=== PATIENT | male | born 1980 | race Caucasian/White ===

== ENCOUNTER 2021-03-28 12:59 | Emergency (ER) | payer OTHER ==
[~2021-03-28] VITALS: Ht 177.8 cm; Wt 83.1 kg
--- NOTE | 2021-03-28 14:29 | REP ---
INDICATION: left testicle pain. COMPARISON: None. TECHNIQUE: Ultrasound examination of the scrotum was performed in multiple projections and supplemented by color Doppler imaging. FINDINGS: The right testis measures 3.9 x 2.7 x 1.9 cm. The right epididymal head measures 8 mm in thickness and contains a cyst measuring 3 mm in diameter. The left testis measures 4.1 x 2.8 x 1.9 cm. The left epididymal head measures 6 mm in thickness and contains a 3 mm in diameter cyst. There is a left extratesticular scrotal calcification measuring 2 mm in diameter. There is a moderate left hydrocele. There are no varicoceles. IMPRESSION: 1. The testes are normal. 2. There are bilateral epididymal head cysts. 3. There is a left hydrocele. 4. There is a benign scrotal fabiana on the left. <Electronically signed by Jorge Goff > 03/28/21 [id number]
[2021-03-28 15:03] LABS: GC DNA AMPLIFICATION NEGATIVE (NEGATIVE)
--- NOTE | 2021-03-28 16:04 | REP ---
INDICATION: urinary freq/hematuria ? kidney stone. COMPARISON: None. TECHNIQUE: Imaging protocol: Computed tomography of the abdomen and pelvis without contrast. 2D sagittal and coronal reconstructions were performed. Radiation optimization: All CT scans at this facility use at least one of these dose optimization techniques: automated exposure control; mA and/or kV adjustment per patient size (includes targeted exams where dose is matched to clinical indication); or iterative reconstruction. FINDINGS: Heart and lung bases: The lung bases are clear. There are no pleural effusions. The heart size is normal. There is no pericardial effusion. Liver: Normal unenhanced appearance. Gallbladder: Normal. Spleen: Normal unenhanced appearance. Pancreas: Normal unenhanced appearance. Adrenal glands: Normal unenhanced appearance. Kidneys/bladder: The kidneys have a normal unenhanced appearance. The urinary bladder is partially evacuated. Pelvic structures: The prostate gland is normal in size. The seminal vesicles have a normal unenhanced appearance. There is no free fluid the pelvis. There is no pelvic or inguinal lymphadenopathy. There is an oval, peripherally hypodense and centrally radiodense mass, in the subcutaneous fat, at the base of the penis, on the right, measuring approximately 20 x 15 x 10 mm. There is significant subcutaneous fat in the visualized penile tissue. GI tract: There is a normal appendix is demonstrated. The gastrointestinal tract is otherwise unremarkable. Abdominal wall and mesentery: There is a 5 mm in diameter umbilical hernia containing normal fat. There are numerous "shotty" reactive retroperitoneal lymph nodes. There is no mesenteric lymphadenopathy. Abdominal aorta and vascular structures: The abdominal aorta has a normal unenhanced appearance. Bony structures: There is an L5-S1 disc protrusion. The SI joints and hips are normal. IMPRESSION: 1. Significant subcutaneous fat in the penis of uncertain significance. 2. There is a subcutaneous mass in the right side of the penis of uncertain etiology. 3. numerous "shotty" reactive retroperitoneal lymph nodes. 4. Degenerative disc disease, L5-S1. 5. There is no evidence of nephrolithiasis, ureterolithiasis or hydronephrosis. <Electronically signed by Jorge Goff > 03/28/21 [id number]
[2021-03-28] MEDS ORDERED: IBUP80TA PO (16:28)
[2021-03-28] MEDS ORDERED: ONDA4TAB6 PO (16:28)
--- NOTE | 2021-03-28 16:32 | ED PDOC ---
Post-Departure Follow-Up radiology report faxed to Shreya Givens MD Mar 28, 2021 16:32
[2021-03-28 16:36] VITALS: BP 141/81
== END 2021-03-28 16:45 | disposition home or self-care (01) ==
LOC: M ED 12:59
DX: N50.9 Disorder of male genital organs, unspecified (principal); R93.89 Abnormal findings on diagnostic imaging of other specified body structures; N50.3 Cyst of epididymis; N43.3 Hydrocele, unspecified; N50.89 Other specified disorders of the male genital organs; F17.200 Nicotine dependence, unspecified, uncomplicated

== ENCOUNTER 2022-09-22 12:50 | Emergency (ER) | payer OTHER ==
[~2022-09-22] VITALS: Ht 180.3 cm; Wt 84.0 kg
[~2022-09-22 12:50] MED LIST: IBUP80TA PO; ONDA4TAB6 PO
[2022-09-22 15:45] LABS: GC DNA AMPLIFICATION NEGATIVE (NEGATIVE)
[2022-09-22] MEDS ORDERED: DOXY-443 PO (16:38)
[2022-09-22] MEDS ORDERED: DOXYCYCLINE HYCLATE 100MG TABLET PO ONE (16:40)
[2022-09-22 16:47] VITALS: BP 130/79
== END 2022-09-22 16:48 | disposition home or self-care (01) ==
LOC: M ED 12:50
DX: Z20.2 Contact with and (suspected) exposure to infections with a predominantly sexual mode of transmission (principal); Z91.013 Allergy to seafood